=== PATIENT | female | born 1960 | race Caucasian/White ===

== ENCOUNTER 2021-10-14 06:29 | Outpatient (CLI) | payer OTHER, SELFPAY ==
--- NOTE | 2021-10-14 09:53 | STRESSREP_ITS ---
Stress Test Report Date: 10-14-2021 Procedure: Pharmacologic stress nuclear imaging study Indications: CAD; PCI; hyperlipidemia; hypertension Consent: Per the patient Procedure: The patient underwent pharmacologic (Regadenoson 0.4mg ) evaluation with a peak heart rate of 89 beats per minute (56%predicted maximal heart rate) and a peak blood pressure of 138/70 mmHg. The baseline ECG demonstrated sinus bradycardia. The peak pharmacologic ECG demonstrated no obvious ECG change. There were no cardiac dysrhythmias pretest, during pharmacologic infusion, or recovery. There was no complaint of chest discomfort during pharmacologic infusion or recovery. The examination was discontinued secondary to completion of protocol. Impression: 1. Pharmacologic (Regadenoson) evaluation 2. Peak pharmacologic ECG with no obvious ECG changes. 3. There were no cardiac dysrhythmias pretest, during pharmacologic infusion, or recovery. 4. Nuclear images pending Myocardial perfusion imaging study: Technique: The patient was injected with 14.2 millicuries of technetium 99m Cardiolite and subsequently rest SPECT Cardiolite nuclear imaging was obtained in the horizontal long, vertical long, and short axis views. The patient underwent pharmacologic (Regadenoson) evaluation with a peak heart rate of 89 beats per minute (56% percent predicted maximal heart rate) and a peak blood pressure of 138/70 mmHg. The patient was injected with 44.4 millicuries of technetium 99m Cardiolite and subsequently stress SPECT Cardiolite nuclear imaging was obtained in the horizontal long, vertical long, and short axis views. A gated Cardiolite study at peak stress was obtained. Interpretation: Rest and stress SPECT Cardiolite nuclear imaging status post realignment, normalization, and attenuation correction demonstrate relative uniform tracer uptake and myocardial perfusion appearing within normal limits. There is end systolic thickening and brightening. The gated Cardiolite study demonstrates myocardial thickening and inward wall motion. The reported LVEF is 70%. Impression: 1. Rest and stress SPECT Cardiolite nuclear imaging demonstrate relative u niform tracer uptake and myocardial perfusion appearing within normal limits. 2. The gated Cardiolite study reports an LVEF of 70%. This note was generated with [email or web address] software. It may contain incorrect words, spelling, and punctuation that were not noted in checking the note before signing.
== END 2021-10-14 23:59 | disposition short-term general hospital (02) ==
LOC: CVS 06:33
PROVIDERS: PCP Nurse Practitioner Primary Care; Referring Provider Physician Assistant Medical; Visit Provider Physician Assistant Medical
DX: I25.10 Atherosclerotic heart disease of native coronary artery without angina pectoris (principal); I10 Essential (primary) hypertension; E78.00 Pure hypercholesterolemia, unspecified; Z95.5 Presence of coronary angioplasty implant and graft
CPT/HCPCS: 78452; 93017; A9500; A4216; J2785

== ENCOUNTER → 2024-12-22 | Outpatient (CLI) | payer MEDICARE, SELFPAY ==
[2024-12-22 10:40] LABS: Absolute Lymphocyte Count 2.84 X10^3/uL (0.83-4.51); Absolute Neutrophil Count 4.5 X10^3/uL (2.0-7.7); Basophil# 0.11 X10^3/uL; Basophil% 1.3 % (0-1); Eosinophil# 0.21 X10^3/uL; Eosinophils% 2.6 % (0-5); Hematocrit 38.9 % (37-47); Hemoglobin 13.1 g/dL (12.0-15.0); Lymphocyte # 2.84 X10^3/ul (0.83-4.51); Lymphocyte % 34.6 % (19-41); Mean Corp Hgb Conc 33.7 g/dL (32-36); Mean Corpuscular Volume 89.2 fL (81-99); Mean Platelet Vol. 10.5 fl (6.2-12.0); Monocyte% 6.1 % (0-10); NRBC Flagged by Analyzer 0 % (0-5); Neutrophil % 54.9 % (47-70); Platelet Count 225 K/mm3 (150-450); RBC Distribution Width CV 14.2 % (11.6-14.6); RBC Distribution Width SD 46.5 fl (35.1-43.9); Red Blood Count 4.36 M/mm3 (4.2-5.4); White Blood Count 8.2 K/mm3 (4.4-11.0)
== END | disposition home or self-care (01) ==
PROVIDERS: PCP Nurse Practitioner Primary Care; Referring Provider Nurse Practitioner Acute Care; Visit Provider Nurse Practitioner Acute Care
DX: K64.9 Unspecified hemorrhoids (principal); K62.5 Hemorrhage of anus and rectum
CPT/HCPCS: 36415; 85025

== ENCOUNTER 2025-02-19 05:27 | Day surgery (SDC) | payer MEDICARE, SELFPAY ==
--- NOTE | 2025-02-16 16:10 | PAT.ANE_ITS ---
Pre-Assessment Diagnosis/Proposed Procedure Planned Operative Procedure(s): COLONOSCOPY Anesthesia History Anesthesia History - ultrasound technologist sonographer: Anesthesia History - ultrasound technologist sonographer Hx Hospitalization No 02/16/25 14:49 Any Problems With Anesthesia No 02/16/25 14:49 Cholinesterase deficiency No 02/16/25 14:49 You/Your Family Experience No 02/16/25 14:49 fever (hyperthermia) with Relationship Recent Exposure to Contagious Disease Does patient have nerve No 02/16/25 14:49 stimulator Patient instructed to have device shut off --Does patient have Pacemaker or ICD? When Was Last Pacemaker Check QUESTION #4 FULL TEXT: You/Your Family Experience fever (hyperthermia) with Anesthesia Last Oral Intake Last Oral intake: Last Oral Intake NPO since Meds taken in AM with sips of water? Meds patient instructed to take am of surgery PONV PONV - ultrasound technologist sonographer: PONV - ultrasound technologist sonographer Female Yes 02/16/25 14:49 HX of Motion Sickness No 02/16/25 14:49 HX of N/V After Surgery No 02/16/25 14:49 Non-Smoker Yes 02/16/25 14:49 Duration of Surgery greater No 02/16/25 14:49 than 60 minutes Number of Risk Factors 2 02/16/25 14:49 PONV Score Moderate Risk 02/16/25 14:49 Height & Weight Height & Weight: Anesthesia: Height & Weight Height 5 ft 5 in 12/22/24 09:35 Respiratory Assessment Respiratory Assessment - ultrasound technologist sonographer: Respiratory Tract Infection Hx - ultrasound technologist sonographer Hx Respiratory Tract Infection No 02/16/25 14:49 STOP Sleep Apnea STOP Sleep Apnea - ultrasound technologist sonographer: STOP Sleep Apnea - ultrasound technologist sonographer Hx Hypertension Yes: PER PT, CONTROLLED 02/16/25 14:49 Hx Sleep Apnea Yes 02/16/25 14:49 CPAP Yes 02/16/25 14:49 BIPAP No 02/16/25 14:49 Do you snore loudly (louder than talking or can be heard Do you often feel tired/ fatigued/ sleepy during daytime? Has anyone observed you stop breathing during sleep? STOP Results Positive 02/16/25 14:49 QUESTION #5 FULL TEXT : Do you snore loudly (louder than talking or can be heard through closed doors)? 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 Specify any problems Hx of Preganancy in last 3 No 02/16/25 14:49 Months Nurse Filling Out Transfusion MGRIFFITH 02/16/25 14:49 & Questions: Date: 02/16/25 02/16/25 14:49 Time: 14:52 02/16/25 14:49 Patient unable to answer at this time (ie. confused, unrespo /Reproduction History /Reproductive History - ultrasound technologist sonographer: /Reproductive Hx- ultrasound technologist sonographer Hx Now No 02/16/25 14:49 Gestational Age (in weeks): EDC: Hx Hx Para Hx Section SAB No 02/16/25 14:49 [facility] Medical History (Updated 02/16/25 @ 14:59 by Jaycee Pillai) Wears glasses Wears dentures Thyroid disease Restless legs History of ulceration Gastric reflux CPAP (continuous positive airway pressure) dependence Shortness of breath on exertion Former smoker Leg cramps Hypertension History of stress test Cardiology follow-up encounter Pure hypercholesterolemia Presence of stent in coronary artery (~10/19/11) Essential hypertension Atherosclerotic heart disease of [place] coronary artery without angina pectoris Tobacco dependence due to cigarettes PVD (peripheral vascular disease) Sleep apnea Intermittent claudication Coronary arteriosclerosis in [place] artery Hyperlipidemia Other halfway (current) drug therapy Hypertension Gastroesophageal reflux disease Depression Home Medications ?Medication ?Instructions ?Recorded ?Last Taken ?Type atorvastatin 20 mg tablet 20 mg PO QDAY 01/01/18 Unkno wn History losartan 100 1 tab PO QDAY 01/01/18 Unkno wn History mg-hydrochlorothiazide 25 mg tablet metoprolol succinate 100 mg 100 mg PO QDAY 01/01/18 Un known History tablet,extended release 24 hr omeprazole 20 mg capsule,delayed 20 mg PO QDAY 8 Unknown History release sertraline 100 mg tablet 100 mg PO QDAY 01/01/18 Unkn own History aspirin 81 mg tablet,delayed 162 mg PO DAILY 03/29/20 Unknown History release (Adult Low Dose Aspirin) nitroglycerin 0.4 mg sublingual 0.4 mg sublingual Q5M PRN chest 03/29/20 Unknown Rx tablet pain #90 tabs amlodipine 10 mg tablet 10 mg PO DAILY #90 tabs 07/08 12/28 Unknown Rx Diltiazem 2% / Lidocaine 5% #30 grams 12/22/24 Unknown Rx ointment (compound) ondansetron HCl 4 mg tablet 4 mg PO .COMPLEX #5 tabs 0 12/22/24 Unknown Rx levothyroxine 25 mcg tablet 25 mcg PO QDAY 01/14/25 Un known History sodium sul 1.479 gram-potas ch See Rx Instructions PO PER PKG DIR 01/29/25 Unknown Rx 0.188 gram-magnes sul 0.225 gram #24 tabs tablet (Sutab) Allergy/AdvReac Type Severity Reaction Status Date / Time citalopram AdvReac Severe Unknown Verified 02/16/25 14:45 codeine AdvReac Severe Nausea and Verified 02/16/25 14:45 vomiting iopamidol (From Isovue-M) AdvReac Severe Rash,difficulty Verified 02/16/25 14:45 breathing moxifloxacin (From Avelox) AdvReac Severe Rash, Verified 02/16/25 14:45 difficulty breathing clindamycin AdvReac Intermediate Severe GI Verified 02/16/25 14:45 upset lisinopril AdvReac Intermediate Cough Verified 02/16/25 14:45 Family History Mother Hypertension Cancer Lung cancer Thyroid disorder Father Hypertension HLD (hyperlipidemia) Kidney disease Brother Hypertension Sister Hypertension CAD (coronary artery disease) cardiac stents Surgical History (Updated 02/16/25 @ 14:49 by Jaycee Pillai) History of colonoscopy H/O removal of cyst History of carpal tunnel release Hx of hysterectomy History of appendectomy Presence of coronary angioplasty implant and graft (~10/19/11) Social History Smoking Status: Former smoker alcohol intake: current alcohol intake frequency: holidays/special occasions only Alcohol type: beer substance use type: does not use Audit: Pertinent Findings Pertinent Findings EKG Perinent findings: 01/14/2025. Sinus rhythm. Negative precordial T waves. Within normal limits. Stress test pertinent findings: 10/14/2021. EF of 70%. No ischemia noted. No infarct. Consult pertinent findings: 01/14/2025. Diameter PAC. 1. Preoperative clearance?acute-latest stress test is without ischemia. Current EKG is without ST elevation or depression. Patient is okay to proceed with planned colonoscopy. 2. Atherosclerotic heart disease of [place] coronary artery without angina?chronic-patient denies any anginal or anginal equivalent symptoms. Continue lifestyle risk factor modifications. Continue metoprolol. 3. Status post PTCA/LEXIS to the proximal LAD in October 2011. Patient is to continue aspirin daily. Recommendation Anesthesia Recommendation Anesthesia recommendation: OPTIMIZED for anesthesia
[2025-02-19] VITALS (8 sets, daily range): BP systolic 114–147; BP diastolic 38–57; PULSE 53–67; RESP 16–20; TEMP 36.3–36.8; O2SAT 93–97; BMI 34.1
[2025-02-19] MEDS: Lactated Ringers 1,000 ML 15 ML IV (06:09)
--- NOTE | 2025-02-19 06:24 | PRE.ANES_ITS ---
ASA Classification* ASA Classification ASA Classification: 3 Assessment & Plan Anesthesia* Anesthesia Assessment Anesthesia Assessment: Discussed sedation and/or anesthesia options, risks, benefits, and alternatives with patient/parents/legal guardian/POA. Questions invited. The patient/parents/legal guardian/POA seems to understand and agrees to proceed with anesthesia plan. Reviewed the physical assessment, medical history, allergy history and patient home medications list prior to surgery/procedure/anesthetic and documented any changes. Performed airway and anesthesia risk assessments. Anesthesia Type Anesthesia Type: MAC History Source History Obtained from:: Patient and Chart Anesthesia Focused Assessment* Temperature: 97.4 F Blood Pressure: 147/57 Respiratory Rate: 20 Pulse Ox: 94 Oxygen Delivery Method: Room Air Airway Assessment Mouth opens: >3 cm Mallampati Score: III Teeth Condition: Dentures Focused Labs Anesthesia Preop lab: CBC WBC 8.2 K/mm3 (4.4-11.0) 12/22/24 10:24 12/22/24 RBC 4.36 M/mm3 (4.2-5.4) 12/22/24 10:24 12/22/24 Hgb 13.1 g/dL (12.0-15.0) 12/22/24 10:24 12/22/24 Hct 38.9 % (37-47) 12/22/24 10:24 12/22/24 Plt Count 225 K/mm3 (150-450) 12/22/24 10:24 12/22/24 CHEMISTRY Potassium 3.8 mmol/L (3.5-5.1) 10/20/16 08:07 10/20/16 Sodium 138 mmol/L (136-145) 10/20/16 08:07 10/20/16 BUN 14 mg/dL (7-18) 10/20/16 08:07 10/20/16 Creatinine 0.83 mg/dL (0.55-1.02) 10/20/16 08:07 10/20/16 Glucose 105 mg/dL (70-110) 10/20/16 08:07 10/20/16 COAG Pre-Assessment Diagnosis/Proposed Procedure Planned Operative Procedure(s): COLONOSCOPY Anesthesia History Anesthesia History - home health care physician: Anesthesia History - home health care physician Hx Hospitalization No 02/16/25 14:49 Any Problems With Anesthesia No 02/16/25 14:49 Cholinesterase deficiency No 02/16/25 14:49 You/Your Family Experience No 02/16/25 14:49 fever (hyperthermia) with Relationship Recent Exposure to Contagious No 02/19/25 05:57 Disease Does patient have nerve No 02/16/25 14:49 stimulator Patient instructed to have device shut off --Does patient have Pacemaker No 02/19/25 05:57 or ICD? When Was Last Pacemaker Check QUESTION #4 FULL TEXT: You/Your Family Experience fever (hyperthermia) with Anesthesia Last Oral Intake Last Oral intake: Last Oral Intake NPO since 19:00 02/19/25 05:57 Meds taken in AM with sips of water? Meds patient instructed to take am of surgery PONV PONV - home health care physician: PONV - home health care physician Female Yes 02/16/25 14:49 HX of Motion Sickness No 02/16/25 14:49 HX of N/V After Surgery No 02/16/25 14:49 Non-Smoker Yes 02/16/25 14:49 Duration of Surgery greater No 02/16/25 14:49 than 60 minutes Number of Risk Factors 2 02/16/25 14:49 PONV Score Moderate Risk 02/16/25 14:49 Height & Weight Height & Weight: Anesthesia: Height & Weight Height 5 ft 5 in 02/19/25 05:57 Weight: 93 kg 02/19/25 05:57 Body Mass Index (BMI) 34.1 02/19/25 05:57 Respiratory Assessment Respiratory Assessment - home health care physician: Respiratory Tract Infection Hx - home health care physician Hx Respiratory Tract Infection No 02/16/25 14:49 STOP Sleep Apnea STOP Sleep Apnea - home health care physician: STOP Sleep Apnea - home health care physician Hx Hypertension Yes: PER PT, CONTROLLED 02/16/25 14:49 Hx Sleep Apnea Yes 02/16/25 14:49 CPAP Yes 02/16/25 14:49 BIPAP No 02/16/25 14:49 Do you snore loudly (louder than talking or can be heard Do you often feel tired/ fatigued/ sleepy during daytime? Has anyone observed you stop breathing during sleep? STOP Results Positive 02/16/25 14:49 QUESTION #5 FULL TEXT : Do you snore loudly (louder than talking or can be heard through closed doors)? 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 Specify any problems Hx of Preganancy in last 3 No 02/16/25 14:49 Months Nurse Filling Out Transfusion MGRIFFITH 02/16/25 14:49 & Questions: Date: 02/16/25 02/16/25 14:49 Time: 14:52 02/16/25 14:49 Patient unable to answer at this time (ie. confused, unrespo /Reproduction History /Reproductive History - home health care physician: /Reproductive Hx- home health care physician Hx Now No 02/16/25 14:49 Gestational Age (in weeks): EDC: Hx Hx Para Hx Section SAB No 02/16/25 14:49 Active Medications Active Medications: Current Medications Generic Name Dose Route Start Last Admin Trade Name Freq PRN Reason Stop Dose Admin Lactated Ringer's 1,000 mls @ 15 mls/hr 02/19/25 05:45 02/19/25 06:09 IV 15 mls/hr .Q48H CRYSTAL Administration PFSH Medical History Wears glasses Wears dentures Thyroid disease Restless legs History of ulceration Gastric reflux CPAP (continuous positive airway pressure) dependence Shortness of breath on exertion Former smoker Leg cramps Hypertension History of stress test Cardiology follow-up encounter Pure hypercholesterolemia Presence of stent in coronary artery (~10/19/11) Essential hypertension Atherosclerotic heart disease of [place] coronary artery without angina pectoris Tobacco dependence due to cigarettes PVD (peripheral vascular disease) Sleep apnea Intermittent claudication Coronary arteriosclerosis in [place] artery Hyperlipidemia 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 Hypertension Gastroesophageal reflux disease Depression Home Medications ?Medication ?Instructions ?Recorded ?Last Taken ?Type atorvastatin 20 mg tablet 20 mg PO QDAY 01/01/1802/18 History losartan 100 1 tab PO QDAY 01/01/1802/18 History mg-hydrochlorothiazide 25 mg tablet metoprolol succinate 100 mg 100 mg PO QDAY 01/01/18 History tablet,extended release 24 hr omeprazole 20 mg capsule,delayed 20 mg PO QDAY 8 02/19/25 History release sertraline 100 mg tablet 100 mg PO QDAY 01/01/1802/05 History aspirin 81 mg tablet,delayed 162 mg PO DAILY 03/29/20 02/16/25 History release (Adult Low Dose Aspirin) nitroglycerin 0.4 mg sublingual 0.4 mg sublingual Q5M PRN chest 03/29/20 Unknown Rx tablet pain #90 tabs amlodipine 10 mg tablet 10 mg PO DAILY #90 tabs 07/0802/19/25 Rx Diltiazem 2% / Lidocaine 5% #30 grams 12/22/24 Unknown Rx ointment (compound) ondansetron HCl 4 mg tablet 4 mg PO .COMPLEX #5 tabs 0 12/22/24 Unknown Rx levothyroxine 25 mcg tablet 25 mcg PO QDAY 01/14/25 History sodium sul 1.479 gram-potas ch See Rx Instructions PO PER PKG DIR 01/29/25 02/17/25 Rx 0.188 gram-magnes sul 0.225 gram #24 tabs tablet (Sutab) Allergy/AdvReac Type Severity Reaction Status Date / Time citalopram AdvReac Severe Unknown Verified 02/19/25 06:01 codeine AdvReac Severe Nausea and Verified 02/19/25 06:01 vomiting iopamidol (From Isovue-M) AdvReac Severe Rash,difficulty Verified 02/19/25 06:01 breathing moxifloxacin (From Avelox) AdvReac Severe Rash, Verified 02/19/25 06:01 difficulty breathing clindamycin AdvReac Intermediate Severe GI Verified 02/19/25 06:01 upset lisinopril AdvReac Intermediate Cough Verified 02/19/25 06:01 Family History Mother Hypertension Cancer Lung cancer Thyroid disorder Father Hypertension HLD (hyperlipidemia) Kidney disease Brother Hypertension Sister Hypertension CAD (coronary artery disease) cardiac stents Surgical History History of colonoscopy H/O removal of cyst History of carpal tunnel release Hx of hysterectomy History of appendectomy Presence of coronary angioplasty implant and graft (~10/19/11) Social History Smoking Status: Former smoker alcohol intake: current alcohol intake frequency: holidays/special occasions only Alcohol type: beer substance use type: does not use Addt'l Information Additional Findings: EKG NSR Review of Systems (Anesthesia) ROS Narrative System reviewed and no additional complaints, except as documented. Physical Exam Const alert and oriented x3 HEENT Teeth and [place]ing[place]: dentures and edentulous Resp normal respiratory effort and normal air movement Auscultation: clear to auscultation bilaterally Cardio regular rate and regular rhythm Neuro oriented x3 and moves all extremities
--- NOTE | 2025-02-19 06:47 | HP.PCM_ITS ---
HPI - General General Date of Admission: 02/19/25 Date of Service: 02/19/25 Chief Complaint: Lower GI bleeding HPI Narrative BONNIE GARZA, is a 64 F who presents for endoscopic evaluation of lower GI bleeding - symptoms began 8 weeks ago - fissures and hemorrhoids - no improvement in the past 6 weeks - she was using lidocaine - using a cream - itching - BRBPR on tissue - not coloring water red - she does experience rectal pain with a BM - denies any abdominal pain - denies any weight loss - has a BM daily - can be hard - denies any watery diarrhea - Colonoscopy per patient 4 years ago - repeat 10 years - denies nay family h/o colon CA - cardiac stent 2011 - denies any h/o MS - quit smoking September 2024 [facility] Medical History Wears glasses Wears dentures Thyroid disease Restless legs History of ulceration Gastric reflux CPAP (continuous positive airway pressure) dependence Shortness of breath on exertion Former smoker Leg cramps Hypertension History of stress test Cardiology follow-up encounter Pure hypercholesterolemia Presence of stent in coronary artery (~10/19/11) Essential hypertension Atherosclerotic heart disease of [place] coronary artery without angina pectoris Tobacco dependence due to cigarettes PVD (peripheral vascular disease) Sleep apnea Intermittent claudication Coronary arteriosclerosis in [place] artery Hyperlipidemia Other supervisor intermediates (current) drug therapy Hypertension Gastroesophageal reflux disease Depression Home Medications ?Medication ?Instructions ?Recorded ?Last Taken ?Type atorvastatin 20 mg tablet 20 mg PO QDAY 01/01/1802/18 History losartan 100 1 tab PO QDAY 01/01/1802/18 History mg-hydrochlorothiazide 25 mg tablet metoprolol succinate 100 mg 100 mg PO QDAY 01/01/18 History tablet,extended release 24 hr omeprazole 20 mg capsule,delayed 20 mg PO QDAY 8 02/19/25 History release sertraline 100 mg tablet 100 mg PO QDAY 01/01/1802/05 History aspirin 81 mg tablet,delayed 162 mg PO DAILY 03/29/20 02/16/25 History release (Adult Low Dose Aspirin) nitroglycerin 0.4 mg sublingual 0.4 mg sublingual Q5M PRN chest 03/29/20 Unknown Rx tablet pain #90 tabs amlodipine 10 mg tablet 10 mg PO DAILY #90 tabs 10/12/2802/19/25 Rx Diltiazem 2% / Lidocaine 5% #30 grams 12/22/24 Unknown Rx ointment (compound) ondansetron HCl 4 mg tablet 4 mg PO .COMPLEX #5 tabs 0 12/22/24 Unknown Rx levothyroxine 25 mcg tablet 25 mcg PO QDAY 01/14/25 History sodium sul 1.479 gram-potas ch See Rx Instructions PO PER PKG DIR 01/29/25 02/17/25 Rx 0.188 gram-magnes sul 0.225 gram #24 tabs tablet (Sutab) Allergy/AdvReac Type Severity Reaction Status Date / Time citalopram AdvReac Severe Unknown Verified 02/19/25 06:01 codeine AdvReac Severe Nausea and Verified 02/19/25 06:01 vomiting iopamidol (From Isovue-M) AdvReac Severe Rash,difficulty Verified 02/19/25 06:01 breathing moxifloxacin (From Avelox) AdvReac Severe Rash, Verified 02/19/25 06:01 difficulty breathing clindamycin AdvReac Intermediate Severe GI Verified 02/19/25 06:01 upset lisinopril AdvReac Intermediate Cough Verified 02/19/25 06:01 Family History Mother Hypertension Cancer Lung cancer Thyroid disorder Father Hypertension HLD (hyperlipidemia) Kidney disease Brother Hypertension Sister Hypertension CAD (coronary artery disease) cardiac stents Surgical History History of colonoscopy H/O removal of cyst History of carpal tunnel release Hx of hysterectomy History of appendectomy Presence of coronary angioplasty implant and graft (~10/19/11) Social History Smoking Status: Former smoker alcohol intake: current alcohol intake frequency: holidays/special occasions only Alcohol type: beer substance use type: does not use ROS Constitutional Constitutional: Denies fatigue, fever(s), poor appetite, weight gain or weight loss Gastrointestinal Gastrointestinal: Denies belching, bloating, change in bowel habits, change in stool character, chewing difficulty, coffee ground emesis, constipation, cramping, diarrhea, dyspepsia, dysphagia, early satiety, excessive flatus, fecal incontinence, heartburn, hematemesis, hematochezia, hemorrhoids, loose stools, melena, nausea, odynophagia, rectal bleeding, tenesmus, vomiting or weight changes Vital Signs Vital Signs Vital Signs: 02/19/25 05:57 02/19/25 05:57 02/19/25 06:27 Temperature 97.4 F L 97.4 F L Temperature Source Temporal Respiratory Rate 20 H 20 H Respiratory Pattern Normal Blood Pressure 147/57 H 147/57 H Blood Pressure Mean 87 Blood Pressure Source Monitor Blood Pressure Position Semi-Fowlers Blood Pressure Location Left Arm Pulse Ox 94 94 Oxygen Delivery Method Room Air Room Air Weight Weight: 205 lb 0.478 oz Body Mass Index (BMI) 34.1 Physical Exam Const alert, oriented x3, no apparent distress and healthy appearing General Appearance: cooperative GI normal to inspection, nondistended, normoactive bowel sounds, soft to palpation, non-tender and non-distended Percussion: normal to percussion Rectal Exam: deferred Assessment & Plan Assessment/Plan (1) Hemorrhoids: (2) Rectal bleeding: PLAN: Assessment and Plan Assessment and Plan (1) Rectal bleeding: Status: Acute (2) Hemorrhoids: Status: Acute (3) Rectal itching: Status: Acute Orders: Orders CBC W/Diff, Automated Today K62.5 - Hemorrhage of anus and rectum, K64.9 - Unspecified hemorrhoids Medications: New Diltiazem 2% / Lidocaine 5% ointment (compound) Instill a pea sized amount into the rectum 2-3x a day as needed for rectal pain 30 grams 0RF peg 3350-sod sulf,[id number] 178.7-7.3-0.5 gram (Suflave) Take as directed for split dose bowel prep 2 mL 0RF ondansetron HCl 4 mg orally; take two tablets PO two hours prior to start of bowel prep and one every 4 hours as needed for N/V 5 tabs 0RF Plan 64y/o female presents for consultation with complaints of rectal pain and bleeding. Symptoms began approximately 8 weeks ago and have progressively worsened. Rectal exam today reveals external erythema and several micro abrasions likely from rectal itching. DRT deferred due to patient discomfort. Plan as outlined below. Patient Instructions: Avoid toilet paper, wash with soap and water after a bowel movement, pat dry Avoid rectal scratching/itching A&D ointment external Sitz Bath 2-3x a day Diltiazem/Lidocaine compound 2-3x a day for rectal pain Colonoscopy with Hemorrhoid banding - SuFlave bowel prep
--- NOTE | 2025-02-19 07:20 | PCM.POST.ANE ---
Anesthesia: Postop Eval I Current Vital Signs Temperature: 97.7 F Pulse Rate: 67 Blood Pressure: 121/41 Respiratory Rate: 16 Pulse Ox: 97 Oxygen Delivery Method: Room Air Assessment Airway patent: Yes Spontaneous unlabored respirations: Yes Mental status: Awake and Calm nausea: No Vomiting: No Anesthesia Complication: No Fluid Hydration Crystalloid volume administer (ml): 400 Total IV fluid infused: 400 Progress Note Anesthesia document: Postop Eval 1 completed: Yes
--- NOTE | 2025-02-19 07:26 | OP.CCLET_ITS ---
02/19/2025 Mariela Chan Re : Colonoscopy procedure for Munira Dejesus Dustin This procedure was performed on February. My impressions and recommendations are as follows: Impressions : - Preparation of the colon was fair. - Perianal rash found on perianal exam. - Diverticulosis in the recto-sigmoid colon and in the sigmoid colon. - Stool in the rectum, in the recto-sigmoid colon, in the descending colon, at the splenic flexure, in the transverse colon, in the ascending colon and in the cecum. - The examined portion of the ileum was normal. - No specimens collected. Recommendations : - Discharge patient to home. - Resume previous diet. - Continue present medications. - Repeat colonoscopy in 5 years for surveillance. -Nystatin and triamcinolone cream 3 times a day - Fluconazole 200 mg once a day x 14 days My findings are described in the full procedure note, which is enclosed. If I can be of further assistance, please feel free to contact me at . Sincerely, Brennon Menendez, 02/19/2025 7:25:30 AM This report has been signed electronically.
--- NOTE | 2025-02-19 07:26 | OP.COLON_ITS ---
Patient Name: Munira Macias Procedure Date: 02/19/2025 6:41 AM Date of : 1960 Age: 64 Procedure: Colonoscopy Indications: Hematochezia, Anal bleeding, Rectal bleeding Providers: Brennon Menendez DO Referring MD: Mariela Chan Medicines: Monitored Anesthesia Care Patient Profile: This is a 64 year old female. Refer to note in patient chart for documentation of history and physical. Last Colonoscopy: several years ago. Complications: No immediate complications. Procedure: Pre-Anesthesia Assessment: - Prior to the procedure, a History and Physical was performed, and patient medications and allergies were reviewed. The patient is competent. The risks and benefits of the procedure and the sedation options and risks were discussed with the patient. All questions were answered and informed consent was obtained. Patient identification and proposed procedure were verified by the physician in the pre-procedure area. Mental Status Examination: alert and oriented. Airway Examination: normal oropharyngeal airway and neck mobility. Respiratory Examination: clear to auscultation. CV Examination: normal. Prophylactic Antibiotics: The patient does not require prophylactic antibiotics. Prior Anticoagulants: The patient has taken no anticoagulant or antiplatelet agents except for NSAID medication. ASA Grade Assessment: II - A patient with mild systemic disease. After reviewing the risks and benefits, the patient was deemed in satisfactory condition to undergo the procedure. The anesthesia plan was to use monitored anesthesia care (MAC). Immediately prior to administration of medications, the patient was re-assessed for adequacy to receive sedatives. The heart rate, respiratory rate, oxygen saturations, blood pressure, adequacy of pulmonary ventilation, and response to care were monitored throughout the procedure. The physical status of the patient was re-assessed after the procedure. After I obtained informed consent, the scope was passed under direct vision. Throughout the procedure, the patient's blood pressure, pulse, and oxygen saturations were monitored continuously. The Colonoscope was introduced through the anus and advanced to the terminal ileum. The colonoscopy was performed without difficulty. The patient tolerated the procedure well. The quality of the bowel preparation was fair. The terminal ileum, ileocecal valve, appendiceal orifice, and rectum were photographed. Scope In: 7:02:48 AM Scope Withdrawal Time 0 hours 7 minutes 7 seconds Scope Out: 7:13:18 AM Total Procedure Duration Time 0 hours 10 minutes 30 seconds Findings: The perianal exam findings include a perianal rash. A few small and large-mouthed diverticula were found in the recto-sigmoid colon and sigmoid colon. Stool was found in the rectum, in the recto-sigmoid colon, in the descending colon, at the splenic flexure, in the transverse colon, in the ascending colon and in the cecum. The terminal ileum appeared normal. Impression: - Preparation of the colon was fair. - Perianal rash found on perianal exam. - Diverticulosis in the recto-sigmoid colon and in the sigmoid colon. - Stool in the rectum, in the recto-sigmoid colon, in the descending colon, at the splenic flexure, in the transverse colon, in the ascending colon and in the cecum. - The examined portion of the ileum was normal. - No specimens collected. Recommendation: - Discharge patient to home. - Resume previous diet. - Continue present medications. - Repeat colonoscopy in 5 years for surveillance. -Nystatin and triamcinolone cream 3 times a day - Fluconazole 200 mg once a day x 14 days Procedure Code(s): --- Professional --- 91218, Colonoscopy, flexible; diagnostic, including collection of specimen(s) by brushing or washing, when performed (separate procedure) CPT copyright 2021 [employer]. All rights reserved. The codes documented in this report are preliminary and upon hims coder review may be revised to meet current compliance requirements. Brennon Menendez DO 02/19/2025 7:25:30 AM This report has been signed electronically. Number of Addenda: 0 Note Initiated On: 02/19/2025 6:41 AM
--- NOTE | 2025-02-19 10:49 | PCM.POSTANE2 ---
Anesthesia Postop Eval I Sum Postop Eval Completion status Anesthesia document: Postop Eval 1 completed: Yes Anesthesia Postop Eval I Summary Anesthesia Postop Eval I Summary: Anesthesia Postop Eval I: Assessment Summary Airway patent Yes 02/19/25 07:21 [email or web address] Spontaneous unlabored Yes 02/19/25 07:21 [email or web address] respirations Mental status Awake,Calm 02/19/25 07:21 [email or web address] nausea No 02/19/25 07:21 [email or web address] Vomiting No 02/19/25 07:21 [email or web address] Anesthesia Postop Eval I: Fluid Summary Crystalloid volume administer 400 02/19/25 07:21 [email or web address] (ml) Colloids volume administered ( ml) Blood Product volume administered (ml) Total IV fluid infused 400 02/19/25 07:21 [email or web address] Anesthesia Postop Eval I: Summary Notes Anesthesia Complication No 02/19/25 07:21 [email or web address] Anesthesia Complication Comment: Post-operative progress note Anesthesia: Postop Eval II Evaluation Mental status: Awake and Calm Pain Level: 0 nausea: No Vomiting: No Complications Anesthesia Complication: No
== END 2025-02-19 08:00 | disposition home or self-care (01) ==
LOC: EN 05:27 → AC 05:29
PROVIDERS: PCP Nurse Practitioner Primary Care; Referring Provider Nurse Practitioner Primary Care; Visit Provider Internal Medicine Gastroenterology
PROC: 0DJD8ZZ Inspection of Lower Intestinal Tract, Via Natural or Artificial Opening Endoscopic (ICD-10-PCS; CPT 45378; principal; 2025-02-19 06:25)
DX: K57.30 Diverticulosis of large intestine without perforation or abscess without bleeding (principal); K21.9 Gastro-esophageal reflux disease without esophagitis; Z87.891 Personal history of nicotine dependence; Z79.82 Long term (current) use of aspirin; E78.00 Pure hypercholesterolemia, unspecified; I25.10 Atherosclerotic heart disease of native coronary artery without angina pectoris; I10 Essential (primary) hypertension; Z79.899 Other long term (current) drug therapy; Z79.890 Hormone replacement therapy; E07.9 Disorder of thyroid, unspecified
CPT/HCPCS: 45378; J2405

== ENCOUNTER → 2025-02-20 | Outpatient (CLI) | payer MEDICARE, SELFPAY ==
--- NOTE | 2025-02-20 09:55 | RAD_ITS ---
PROCEDURE: LUMBAR SPINE 2 OR 3 VIEWS 02/20/2025 REASON FOR EXAM: LOW BACK PAIN, CLAUDICATION TECHNIQUE: 3 view(s) of the lumbar spine; AP, lateral and coned-down L5-S1 view COMPARISON: None available FINDINGS: 5 [id number] lumbar vertebral body types identified. No fracture or malalignment. L3-4 moderate disc space narrowing and degenerative endplate changes L4-5 severe disc space narrowing and degenerative endplate changes L5-S1 spondylosis Bilateral lower lumbar facet degenerative change. Aortoiliac atherosclerotic calcification. Mild leftward curvature of the lower lumbar spine and slight pelvic tilt to the left. RAD/Lumbar Spine 2 or 3 Views IMPRESSION: Multilevel spondylosis/discogenic change as above. Reading Location: [id number]
== END | disposition home or self-care (01) ==
LOC: RAD 09:48
PROVIDERS: PCP Nurse Practitioner Primary Care; Referring Provider Physician Assistant; Visit Provider Physician Assistant
DX: I73.9 Peripheral vascular disease, unspecified (principal); M54.50 Low back pain, unspecified
CPT/HCPCS: 72100

== ENCOUNTER → 2025-03-27 | Outpatient (CLI) | payer MEDICARE, SELFPAY ==
--- NOTE | 2025-03-27 13:09 | MRI_ITS ---
PROCEDURE: SPINE LUMBAR (ROUTINE) N/A REASON FOR EXAM: PAIN, STENOSIS TECHNIQUE: SPINE LUMBAR (ROUTINE) COMPARISON: Radiographs on 03/06/2025. FINDINGS: S shaped degenerative scoliosis. Moderate diffuse spondylosis. Moderate multilevel degenerative disc disease. There is normal signal intensity from the visualized bone marrow without evidence of replacement or acute fracture. The conus is unremarkable. Straightening of the lumbar lordosis, probably muscular spasm and pain. Evaluation of the individual levels revealed the following: L5-S1: There is grade 1 anterolisthesis measuring 4.7 mm. Mild diffuse disc bulge. Superimposed broad-based left foraminal disc protrusion measuring 3.5 mm. Well-defined benign chronic extracanalicular synovial cyst is noted measuring 1.7 cm arising from the posterior extracanalicular aspect of the left facet joint without secondary impingement on the neural structures. The spinal canal is not narrowed. There is mild right and moderate left neural foramina narrowing. L4-5: There is grade 1 retrolisthesis measuring 3.5 mm. Mild diffuse disc bulge. Superimposed left paracentral/posterolateral disc extrusion measuring 1.2 x 0.5 cm in its largest craniocaudal and anteroposterior dimensions respectively. Mild caudal subligamentous slippage of the herniated disc without sequestration. Bilateral facet joint arthropathy and ligamentum flavum hypertrophy. There is moderate right and mild left neural foramina narrowing. L3-4: There is grade 1 anterolisthesis measuring 3.6 mm. Mild diffuse disc bulge. Superimposed broad-based right paracentral/posterolateral disc protrusion measuring 4.7 mm. Bilateral facet joint arthropathy and ligamentum flavum hypertrophy. The spinal canal is not narrowed. There is moderate right and mild left neural foramina narrowing. L2-3: Mild diffuse disc bulge. Superimposed broad-based left posterolateral/foraminal disc protrusion measuring 3.2 mm. Grade 1 retrolisthesis measuring 2.4 mm. Bilateral facet joint arthropathy and ligamentum flavum hypertrophy. There is mild right and moderate left neural foraminal narrowing. L1-2: There is mild diffuse disc bulge. The spinal canal is not narrowed. There is no evidence of neural foramina narrowing. Normal visualized paraspinous soft tissue structures. MRI/Spine Lumbar (Routine) IMPRESSION: Degenerative disc disease. Reading [facility]
== END | disposition home or self-care (01) ==
LOC: MRI 12:56
PROVIDERS: PCP Nurse Practitioner Primary Care; Referring Provider Student in an Organized Health Care Education/Training Program; Visit Provider Student in an Organized Health Care Education/Training Program
DX: M48.062 Spinal stenosis, lumbar region with neurogenic claudication (principal); M51.362 Other intervertebral disc degeneration, lumbar region with discogenic back pain and lower extremity pain
CPT/HCPCS: 72148

== ENCOUNTER → 2025-04-08 | Outpatient (CLI) | payer MEDICARE, SELFPAY ==
--- NOTE | 2025-04-08 10:10 | RAD_ITS ---
PROCEDURE: HIP, UNI W/ PELVIS 2-3 VIEWS 04/08/2025 REASON FOR EXAM: LEFT HIP PAIN TECHNIQUE: HIP, UNI W/ PELVIS 2-3 VIEWS COMPARISON: None. FINDINGS: No evidence of acute fracture or dislocation. The hip joint spaces are maintained. RAD/HIP, UNI W/ Pelvis 2-3 Views IMPRESSION: No acute abnormality. Reading Location: [place] [id number]
== END | disposition home or self-care (01) ==
LOC: RAD 10:02
PROVIDERS: PCP Nurse Practitioner Primary Care; Referring Provider Anesthesiology Pain Medicine; Visit Provider Anesthesiology Pain Medicine
DX: M25.552 Pain in left hip (principal)
CPT/HCPCS: 73502